=== PATIENT | male | born 1950 | race Caucasian/White ===

== ENCOUNTER 2018-09-19 14:39 | Emergency (ER) | payer MEDICARE ==
[~2018-09-19] VITALS: Ht 172.7 cm; Wt 72.6 kg
[2018-09-19 16:58] LABS: BASOPHILS ABSOLUTE AUTO 0.05 K/mm3 (0.00-0.23); BASOPHILS PERCENT AUTO 1 % (0-2); EOSINOPHILS ABSOLUTE AUTO 0.06 K/mm3 (0.00-0.68); EOSINOPHILS PERCENT AUTO 1 % (0-6); Hematocrit 42.2 % (37.0-53.0); Hemoglobin 13.8 g/dL (13.5-17.5); IMMATURE GRAN ABSOLUTE AUTO 0.03 K/mm3 (0.00-0.10); IMMATURE GRAN PERCENT AUTO 0 % (0-1); LYMPHOCYTES ABSOLUTE AUTO 1.34 K/mm3 (0.84-5.20); LYMPHOCYTES PERCENT AUTO 16 % (21-46); MONOCYTES ABSOLUTE AUTO 0.68 K/mm3 (0.16-1.47); MONOCYTES PERCENT AUTO 8 % (4-13); Mean Corpuscular HGB 28.3 pg (26.0-34.0); Mean Corpuscular HGB Conc 32.7 g/dL (31.5-36.5); Mean Corpuscular Volume 87 fL (80-100); Mean Platelet Volume 10.8 fL (9.1-12.4); NEUTROPHILS ABSOLUTE AUTO 6.36 K/mm3 (1.96-9.15); NEUTROPHILS PERCENT AUTO 75 % (41-73); Platelet Count 190 K/mm3 (150-400); RDW Coefficient Variation 13.1 % (11.7-14.2); RDW Standard Deviation 41.1 fL (35.1-46.3); Red Blood Cell Count 4.87 M/mm3 (4.30-5.90); White Blood Cell Count 8.52 K/mm3 (4.00-11.30)
[2018-09-19 17:13] LABS: Prothrombin Time Results 10.6 Sec (9.7-11.5)
[2018-09-19 17:18] LABS: Albumin, Blood 3.6 g/dL (3.4-5.0); Albumin/Globulin Ratio 0.8 (0.8-1.8); Bilirubin, Total 0.7 mg/dL (0.1-1.0); Globulin, Blood 4.3 g/dL (2.2-4.0); Potassium, Blood 3.8 mmol/L (3.5-5.5); Total Protein, Blood 7.9 g/dL (6.4-8.2)
== END 2018-09-19 17:16 | disposition home or self-care (01) ==
LOC: ER 14:39
PROVIDERS: Physician Assistant
DX: R27.0 Ataxia, unspecified (principal); Z86.73 Personal history of transient ischemic attack (TIA), and cerebral infarction without residual deficits
CPT/HCPCS: 36415; 70450; 71046; 80053; 85025; 85610; 93005; 93010; 99284-25

== ENCOUNTER 2019-09-10 11:06 | Inpatient (IN) | payer MEDICARE ==
[~2019-09-10] VITALS: Ht 172.7 cm; Wt 89.0 kg
[2019-09-10 12:40] LABS: BASOPHILS ABSOLUTE AUTO 0.06 K/mm3 (0.00-0.23); BASOPHILS PERCENT AUTO 1 % (0-2); EOSINOPHILS ABSOLUTE AUTO 0.24 K/mm3 (0.00-0.68); EOSINOPHILS PERCENT AUTO 3 % (0-6); Hematocrit 41.6 % (37.0-53.0); Hemoglobin 13.6 g/dL (13.5-17.5); IMMATURE GRAN ABSOLUTE AUTO 0.02 K/mm3 (0.00-0.10); IMMATURE GRAN PERCENT AUTO 0 % (0-1); LYMPHOCYTES ABSOLUTE AUTO 1.29 K/mm3 (0.84-5.20); LYMPHOCYTES PERCENT AUTO 18 % (21-46); MONOCYTES ABSOLUTE AUTO 0.71 K/mm3 (0.16-1.47); MONOCYTES PERCENT AUTO 10 % (4-13); Mean Corpuscular HGB 29.2 pg (26.0-34.0); Mean Corpuscular HGB Conc 32.7 g/dL (31.5-36.5); Mean Corpuscular Volume 89 fL (80-100); Mean Platelet Volume 11.5 fL (9.1-12.4); NEUTROPHILS PERCENT AUTO 67 % (41-73); Platelet Count 169 K/mm3 (150-400); RDW Coefficient Variation 13.5 % (11.7-14.2); RDW Standard Deviation 44.5 fL (35.1-46.3); Red Blood Cell Count 4.66 M/mm3 (4.30-5.90); White Blood Cell Count 7.02 K/mm3 (4.00-11.30)
[2019-09-10 12:54] LABS: International Normalized Ratio 0.96; Prothrombin Time Results 10.3 Sec (9.7-11.5)
[2019-09-10 12:58] LABS: Albumin, Blood 3.5 g/dL (3.4-5.0); Albumin/Globulin Ratio 0.9 (0.8-1.8); Bilirubin, Total 0.3 mg/dL (0.1-1.0); Bun/Creatinine Ratio 22.5 (12.0-20.0); Calcium, Blood 8.2 mg/dL (8.5-10.1); Creatinine, Blood 1.73 mg/dL (0.60-1.20); Globulin, Blood 3.9 g/dL (2.2-4.0); Potassium, Blood 4.1 mmol/L (3.5-5.5); Total Protein, Blood 7.4 g/dL (6.4-8.2)
[2019-09-10] MEDS ORDERED: ATOR40TA PO (13:07)
[2019-09-10] MEDS ORDERED: METF500 PO (13:07)
--- NOTE | 2019-09-10 18:10 | NUR ---
SHIFT SUMMARY PT ADMITTED TO MEDICAL FLOOR THIS EVENING. HTN NOTED, PT HAS BEEN MEDICATED PER EMAR. RIGHT SIDED DEFICITS NOTED, WORKING WITH PT AND OT THIS EVENING. WILL CONTINUE TO MONITOR FOR ANY ACUTE CHANGES.
--- NOTE | 2019-09-11 04:21 | NUR ---
SHIFT SUMMARY PT HAD AN UNEVENTUFL EVENING. SLEPT OFF AND ON THROUGHOUT THE NIGHT. CORN BREEDER STRONG. MOSTLY EQUAL. MAY BE SLIGHTLY WEAKER ON R SIDE. SOME MINIMAL SLURRED SPEECH. PUPILS EQUAL AND REACTIVE TO LIGHT. PT STEADY ON HIS FEET. AMBULATES WELL WITH JUST A SBA TO RESTROOM. PT CONTINUES TO BE HYPERTENSIVE BUT HAS BEEN TRENDING DOWN THROUGHOUT THE NIGHT. NO COMPLAINTS OF PAIN THIS EVENING. PT RESTING AT THIS TIME. WILL CONTINUE TO MONITOR AND REPORT TO DAY RN.
[2019-09-11 05:53] LABS: CHOL/HDL RATIO 5.6; Cholesterol 223 mg/dL (50-200); HDL Cholesterol 40 mg/dL (>39); LDL/HDL RATIO 3.6; Low Density Lipoprotein Chol 144 mg/dL (0-110); Triglycerides 194 mg/dL (30-160); Very Low Density Lipoprot Chol 38 mg/dL (6-32)
[2019-09-11 12:52] LABS: Source, Urine Clean Catch
[2019-09-11 12:58] LABS: Bilirubin, Urine Neg (Neg); Blood, Urine Neg (Neg); Glucose Qualitative, Urine Neg (Neg); Ketones, Urine Neg (Neg); Leukocyte Esterase, Urine Neg (Neg); Nitrite, Urine Neg (Neg); Protein, Urine 1+ (Neg); Urobilinogen, Urine NORM (Normal)
[2019-09-11 13:21] LABS: Appearance, Urine Clear (Clear); Color, Urine Yellow (P-Yellow)
--- NOTE | 2019-09-11 15:13 | NUR ---
SHIFT SUMMARY PT AXO PLEASANT AND COOPERATIVE WITH CARE. PT AMBULATING WITH STEADY GAIT, NO DEFICITS NOTED. PT STATES THAT HE "FEELS GOOD." PT REFUSED INSULIN STATING THAT HE DID NOT WANT BLOOD SUGAR TO GO "TOO LOW." UA SENT TO LAB, SEE RESULTS. PT ALSO HAD CT, MRI THIS SHIFT, SEE IMAGING. PT'S FRIEND SARAH CALLED AND UPDATE GIVEN WITH PT PERMISSION. VSS, HTN NOTED. BED IN LOW POSITION, CALL LIGHT WITHIN REACH.
--- NOTE | 2019-09-11 15:52 | NUR ---
REPORT GIVEN TO KATERIN GLEZ RN WHO WILL ASSUME CARE AT THIS TIME
--- NOTE | 2019-09-11 16:04 | NUR ---
Echocardiogram completed.
--- NOTE | 2019-09-11 16:49 | NUR ---
ASSUMED CARE FOR THIS PT, REPORT RECIEVED FROM ANDREA NANCE. PT IS CURRENTLY RECIEVING ECHOCARDIOGRAM. PT IS RESTING COMFORTABLY IN BED AND REPORTS NO NEEDS AT THIS TIME
--- NOTE | 2019-09-12 05:28 | NUR ---
SHIFT SUMMARY PT HAD UNEVENTFUL NIGHT. FELL ASLEEP LATE IN THE NIGHT BUT SLEPT WELL FOLLOWING. NO COMPLAINTS OF PAIN OR DISCOMFORT. SLURRED SPEECH RESOLVED. NO DEFICITS NOTED. STRENGTH EQUAL. PT'T GAIT STEADY. PT INDEPENDENT TO THE RESTROOM THIS EVENING. TELEMETRY READING SR 72. BLOOD PRESSURE REMAINED SOMEWHAT ELEVATED WITH SYSTOLIC IN THE 160'S. NEW ORDER FOR ZESTRIL TO START THIS EVENING. ZESTRIL GIVEN. BP DOWN TO 144/78 THIS AM. OTHERWISE NO ACUTE CHANGES. VITAL SIGNS STABLE. WILL CONTINUE TO MONITOR AND REPORT TO DAY RN.
[2019-09-12 05:53] LABS: Bun/Creatinine Ratio 18.8 (12.0-20.0); Calcium, Blood 8.5 mg/dL (8.5-10.1); Creatinine, Blood 2.02 mg/dL (0.60-1.20); Potassium, Blood 4.1 mmol/L (3.5-5.5)
--- NOTE | 2019-09-12 17:36 | NUR ---
SHIFT SUMMARY- PT IS A/O, PLESANT AND COOPERATIVE. HE HAS A GOOD APPETITE. HE WORKED WITH PHYSICAL THERAPY AND OCCUPATIONAL THERAPY. HE IS PENDING DISCHARGE TOMORROW WITH HOME HEALTH. HE WILL NEED A PRIMARY CARE PROVIDER AND FOLLOW UP LABS ON SUNDAY. SPOKE WITH HIS FRIEND AND HIS SISTER AND PORVIDED UPDATES.
[2019-09-13 05:18] LABS: Bun/Creatinine Ratio 22.9 (12.0-20.0); Calcium, Blood 8.4 mg/dL (8.5-10.1); Creatinine, Blood 1.92 mg/dL (0.60-1.20); Potassium, Blood 4.1 mmol/L (3.5-5.5)
--- NOTE | 2019-09-13 06:11 | NUR ---
pt pleasant and cooperative during care. Pt slept peacefully through the night only getting up to use the restroom. Pt's speech appears to be clear and does not have sluurred speech at this time. pt reported no pain or any new complaints through the night. pt reports desire to go home.
--- NOTE | 2019-09-13 06:40 | NUR ---
SUMMARY NO ISSUES NOTED. PT HAS SLEPT T/O SHIFT. PT IS AMBULATING WELL AND NO NOTED DEFICITS. PT CURRENTLY SLEEPING AND IN NO DISTRESS. CALL LIGHT IN REACH.
--- NOTE | 2019-09-13 13:55 | NUR ---
PATIENT HAS SARAH JASON AT [phone]. SHE STS HE HAS F/U APPOINTMENT ON FRIDAY 09/[address]KODY GRACE IN [place]. WILL CALL HER IF PATIENT IS TO BE D'C TODAY OR NOT TO KEEP HER UPDATED.
[2019-09-13] MEDS ORDERED: AMLO10 PO (16:54)
[2019-09-13] MEDS ORDERED: ASPI81CH PO (16:55)
[2019-09-13] MEDS ORDERED: CLOP75 PO (16:55)
[2019-09-13] MEDS ORDERED: LISI20 PO (16:55)
--- NOTE | 2019-09-13 17:31 | NUR ---
REVIEW D'C. 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 AWARE HAS F/U APPT W/PCP ON SUNDAY. AWARE WILL GET HH AND STS WANTS WHICHEVER ONE CAN GET IN FIRST. ANSWER ALL QUESTIONS. AWAITING RIDE.AWARE CAN RETURN TO E.R IF ANY PROBLEMS. AWARE SHOULD GET BLD PRESSURE MACHINE AND KEEP TRACK OF BLD PRESSURES.
== END 2019-09-13 17:50 | disposition home or self-care (01) | DRG 66 ==
LOC: ER 11:06 → MEDS 12:51
PROVIDERS: Emergency Medicine; Hospitalist; ADMIT Internal Medicine
DX: I63.9 Cerebral infarction, unspecified (principal); N18.3 Chronic kidney disease, stage 3 (moderate); E11.22 Type 2 diabetes mellitus with diabetic chronic kidney disease; E11.65 Type 2 diabetes mellitus with hyperglycemia; I12.9 Hypertensive chronic kidney disease with stage 1 through stage 4 chronic kidney disease, or unspecified chronic kidney disease; E78.5 Hyperlipidemia, unspecified; I27.20 Pulmonary hypertension, unspecified; I08.1 Rheumatic disorders of both mitral and tricuspid valves; Z86.73 Personal history of transient ischemic attack (TIA), and cerebral infarction without residual deficits
CPT/HCPCS: 36415; 70450; 70496; 70551; 71046; 76770; 80048; 80053; 80061; 82947; 83036; 85025; 85610; 92610; 93005; 93010; 93306; 97110; 97112; 97116; 97162; 97165; 97530; 97535; 99285-25; A9270-GY; J1650; Q9967

== ENCOUNTER → 2021-11-30 | Outpatient (CLI) | payer MEDICARE ==
[~2021-11-30] MED LIST: AMLO10 PO; ASPI81CH PO; ATOR40TA PO; CLOP75 PO; LISI20 PO; METF500 PO
[2021-11-30 19:48] LABS: Microalb/Creat Ratio UR, Rand 16.238 mg/g (0.000-30.000); Microalbumin, Random Urine 16.4 mg/L (0.000-20.000)
== END | disposition home or self-care (01) ==
LOC: LAB SHORT 12:00
PROVIDERS: Family Medicine
DX: E11.9 Type 2 diabetes mellitus without complications (principal)
CPT/HCPCS: 82043; 82570

== ENCOUNTER 2022-07-24 10:26 | Day surgery (SDC) | payer MEDICARE ==
[~2022-07-24] VITALS: Ht 172.7 cm; Wt 98.4 kg
[2022-07-24 11:26] VITALS: BP 167/78
--- NOTE | 2022-07-24 13:49 | NUR ---
07/24/22 8770 Hemalatha Mcgovern PT COULD NOT SAY FOR SURE WHETHER OR NOT HE TOOK HIS PLAVIX SO CASE WAS CANCELLED.
== END 2022-07-24 12:55 | disposition home or self-care (01) ==
LOC: ORSCSDS 10:26
DX: D64.9 Anemia, unspecified (principal); Z53.9 Procedure and treatment not carried out, unspecified reason
CPT/HCPCS: 82947; J2704; J7120

== ENCOUNTER 2022-12-03 20:05 | Inpatient (IN) | payer MEDICARE ==
[2022-12-03 23:24] LABS: BASOPHILS ABSOLUTE AUTO 0.04 K/mm3 (0.00-0.23); BASOPHILS PERCENT AUTO 0 % (0-2); EOSINOPHILS PERCENT AUTO 0 % (0-6); Hematocrit 40.5 % (37.0-53.0); Hemoglobin 13.7 g/dL (13.5-17.5); IMMATURE GRAN ABSOLUTE AUTO 0.08 K/mm3 (0.00-0.10); IMMATURE GRAN PERCENT AUTO 1 % (0-1); LYMPHOCYTES ABSOLUTE AUTO 1.05 K/mm3 (0.84-5.20); LYMPHOCYTES PERCENT AUTO 7 % (21-46); MONOCYTES ABSOLUTE AUTO 1.39 K/mm3 (0.16-1.47); MONOCYTES PERCENT AUTO 9 % (4-13); Mean Corpuscular HGB 29.2 pg (26.0-34.0); Mean Corpuscular HGB Conc 33.8 g/dL (31.5-36.5); Mean Corpuscular Volume 86 fL (80-100); Mean Platelet Volume 10.5 fL (9.1-12.4); NEUTROPHILS ABSOLUTE AUTO 12.21 K/mm3 (1.96-9.15); NEUTROPHILS PERCENT AUTO 83 % (41-73); Platelet Count 299 K/mm3 (150-400); RDW Coefficient Variation 13.3 % (11.7-14.2); RDW Standard Deviation 41.4 fL (35.1-46.3); Red Blood Cell Count 4.69 M/mm3 (4.30-5.90); White Blood Cell Count 14.77 K/mm3 (4.00-11.30)
[2022-12-03 23:42] LABS: Albumin, Blood 3.9 g/dL (3.4-5.0); Albumin/Globulin Ratio 0.9 (0.8-1.8); Bilirubin, Total 0.5 mg/dL (0.1-1.0); Bun/Creatinine Ratio 20.7 (12.0-20.0); Calcium, Blood 8.9 mg/dL (8.5-10.1); Creatinine, Blood 2.94 mg/dL (0.60-1.20); Globulin, Blood 4.5 g/dL (2.2-4.0); Potassium, Blood 3.8 mmol/L (3.5-5.5); Total Protein, Blood 8.4 g/dL (6.4-8.2)
[2022-12-04 02:58] VITALS: BP 162/90
--- NOTE | 2022-12-04 04:56 | NUR ---
CALLED DR BAL- PT BG 375 IN ED 10 UNITS LANTUS ORDERED AND NOT GIVEN. PT ARRIVED ON MED FLOOR BG RECHECKED FOR LANTUS ADMINISTRATION, BG 277. PT HAS NEVER USED INSULIN HE USES METFORMIN AT HOME. IVF STARTED AT 75ML/HR. PT IS NPO. ORDER RECIEVED TO GIVE 5UNITS OF LANTUS NOW INSTEAD OF 10. ORDER PLACED IN ORDER MANAGEMENT.
--- NOTE | 2022-12-04 07:50 | NUR ---
SSHIFT SUMMARY- PT ALERT AND ORIENTED INDEPENDENT TO THE BATHROOM. SPOKE TO AM DOCTORS AT THE END OF THE SHIFT ABOUT THE NEED FOR PODIATRY FOR THIS PT. BEDSIDE REPORT COMPLETED WITH DAY RN. PT IN BED GETTING RENAL US NO S&S OF DISTRESS NOTED.
[2022-12-04 08:03] VITALS: BP 172/82
[2022-12-04 09:06] LABS: BASOPHILS ABSOLUTE AUTO 0.03 K/mm3 (0.00-0.23); BASOPHILS PERCENT AUTO 0 % (0-2); EOSINOPHILS ABSOLUTE AUTO 0.04 K/mm3 (0.00-0.68); EOSINOPHILS PERCENT AUTO 0 % (0-6); Hematocrit 34.1 % (37.0-53.0); Hemoglobin 11.7 g/dL (13.5-17.5); IMMATURE GRAN ABSOLUTE AUTO 0.04 K/mm3 (0.00-0.10); IMMATURE GRAN PERCENT AUTO 0 % (0-1); LYMPHOCYTES ABSOLUTE AUTO 1.27 K/mm3 (0.84-5.20); LYMPHOCYTES PERCENT AUTO 12 % (21-46); MONOCYTES ABSOLUTE AUTO 1.28 K/mm3 (0.16-1.47); MONOCYTES PERCENT AUTO 12 % (4-13); Mean Corpuscular HGB Conc 34.3 g/dL (31.5-36.5); Mean Corpuscular Volume 85 fL (80-100); Mean Platelet Volume 10.2 fL (9.1-12.4); NEUTROPHILS ABSOLUTE AUTO 7.82 K/mm3 (1.96-9.15); NEUTROPHILS PERCENT AUTO 75 % (41-73); Platelet Count 235 K/mm3 (150-400); RDW Coefficient Variation 13.2 % (11.7-14.2); RDW Standard Deviation 41.4 fL (35.1-46.3); Red Blood Cell Count 4.03 M/mm3 (4.30-5.90); White Blood Cell Count 10.48 K/mm3 (4.00-11.30)
[2022-12-04 09:28] LABS: Albumin/Globulin Ratio 0.8 (0.8-1.8); Bilirubin, Total 0.5 mg/dL (0.1-1.0); Bun/Creatinine Ratio 22.9 (12.0-20.0); Calcium, Blood 7.8 mg/dL (8.5-10.1); Creatinine, Blood 2.53 mg/dL (0.60-1.20); Globulin, Blood 3.8 g/dL (2.2-4.0); Potassium, Blood 3.8 mmol/L (3.5-5.5); Total Protein, Blood 6.8 g/dL (6.4-8.2)
[2022-12-04 14:51] VITALS: BP 153/82
[2022-12-04 18:19] LABS: Bun/Creatinine Ratio 20.1 (12.0-20.0); Calcium, Blood 8.3 mg/dL (8.5-10.1); Creatinine, Blood 2.69 mg/dL (0.60-1.20); Potassium, Blood 3.6 mmol/L (3.5-5.5)
--- NOTE | 2022-12-04 18:51 | NUR ---
SHIFT SUMMARY- PT IS A/O, PLESANT AND COOPERATIVE. HE C/O SORE THROAT WHEN EATING ST ORDERED. PT SLEPT FOR MUCH OF THIS SHIFT. BLOOD GLUCOSE HAS BEEN ELEVATED AND COVERED WITH INSULIN. RENAL ULTRASOUND THIS SHIFT. NOTIFIED PT THAT WE NEEDED TO COLLECT URINE AND STOOL SAMPLE. PT IS AMBULATING TO RESTROOM. HIS BED IS IN THE LOW POSIOTN AND CALL LIGHT IS WITIN REACH.
[2022-12-04 19:38] VITALS: BP 153/80
[2022-12-04 19:57] LABS: Source, Urine Clean Catch
[2022-12-04 20:11] LABS: Appearance, Urine Clear (Clear); Bilirubin, Urine Neg (Neg); Blood, Urine 1+ (Neg); Color, Urine Yellow (P-Yellow); Glucose Qualitative, Urine 2+ (Neg); Ketones, Urine Neg (Neg); Leukocyte Esterase, Urine Neg (Neg); Nitrite, Urine Neg (Neg); Protein, Urine 1+ (Neg); Urobilinogen, Urine NORM (Normal)
[2022-12-04 20:40] LABS: Bacteria Rare /hpf; Red Blood Cells, Urine 0-2 /hpf (0-2); Squamous Epithelial Cells Rare /hpf (Few); White Blood Cells, Urine 0-2 /hpf (0-5)
[2022-12-04 20:41] LABS: Uric Acid Crystals Few /hpf
[2022-12-05 04:22] VITALS: BP 139/74
--- NOTE | 2022-12-05 05:44 | NUR ---
SHIFT SUMMARY A/OX4, IND TO BATHROOM. SLEPT T/O THE NIGHT. TELE SR 60-70S, DENIES CHEST PAIN/PRESSURE. VSS, NO ACUTE CHANGES AT THIS TIME. BED IN LOWEST POSTIION WITH CALL LIGHT IN REACH. WILL CONTINUE TO MONITOR AND REPORT TO ONCOMING RN.
[2022-12-05 07:35] VITALS: BP 150/75
[2022-12-05 07:46] LABS: BASOPHILS ABSOLUTE AUTO 0.07 K/mm3 (0.00-0.23); BASOPHILS PERCENT AUTO 1 % (0-2); EOSINOPHILS PERCENT AUTO 3 % (0-6); Hematocrit 33.5 % (37.0-53.0); Hemoglobin 11.5 g/dL (13.5-17.5); IMMATURE GRAN ABSOLUTE AUTO 0.04 K/mm3 (0.00-0.10); IMMATURE GRAN PERCENT AUTO 0 % (0-1); LYMPHOCYTES ABSOLUTE AUTO 1.75 K/mm3 (0.84-5.20); LYMPHOCYTES PERCENT AUTO 17 % (21-46); MONOCYTES ABSOLUTE AUTO 1.26 K/mm3 (0.16-1.47); MONOCYTES PERCENT AUTO 12 % (4-13); Mean Corpuscular HGB 29.3 pg (26.0-34.0); Mean Corpuscular HGB Conc 34.3 g/dL (31.5-36.5); Mean Corpuscular Volume 86 fL (80-100); Mean Platelet Volume 10.3 fL (9.1-12.4); NEUTROPHILS PERCENT AUTO 67 % (41-73); Platelet Count 225 K/mm3 (150-400); RDW Coefficient Variation 13.2 % (11.7-14.2); RDW Standard Deviation 40.9 fL (35.1-46.3); Red Blood Cell Count 3.92 M/mm3 (4.30-5.90); White Blood Cell Count 10.42 K/mm3 (4.00-11.30)
[2022-12-05 07:57] LABS: Bun/Creatinine Ratio 20.3 (12.0-20.0); Calcium, Blood 8.2 mg/dL (8.5-10.1); Creatinine, Blood 2.36 mg/dL (0.60-1.20); Potassium, Blood 3.6 mmol/L (3.5-5.5)
[2022-12-05] MEDS ORDERED: TAMSULOSIN HCL0.4 M1 PO (12:38)
[2022-12-05] MEDS ORDERED: FUROSEMIDE20 MG PO (12:39)
[2022-12-05] MEDS ORDERED: TERB250 PO (14:58)
[2022-12-05] MEDS ORDERED: OMEP20ER PO (14:58)
[2022-12-05 14:59] VITALS: BP 150/72
--- NOTE | 2022-12-05 16:33 | NUR ---
DISCHARGE PT A&OX4, COOPERATIVE WITH CARE AND PLEASANT. INDEPENDEN T/O SHIFT. DENIED ANY CHEST PAIN, SOB, DIZZINESS, OR HEADACHE. IV REMOVED. SKIN TEAR COVERED WITH BANDAGE. DISCHARGE PACKET REVIEWED AND EDUCATION PROVIDED. PATIENT DENIED ANY QUESTIONS OR CONCERNS. PATIENT LEFT AT 1625 VIA WHEELCHAIR ESCORT NOTING THAT HIS RIDE IS ON THE WAY AND HE WOULD WAIT DOWNSTAIRS.
== END 2022-12-05 16:30 | disposition home or self-care (01) | DRG 682 ==
LOC: ER 20:05 → MEDS 20:06 → ENPENDDIS 12-05 15:45 → MEDS 12-05 16:30
PROVIDERS: Family Medicine; Student in an Organized Health Care Education/Training Program; ADMIT Internal Medicine
DX: N17.9 Acute kidney failure, unspecified (principal); I21.A1 Myocardial infarction type 2; E87.1 Hypo-osmolality and hyponatremia; I12.9 Hypertensive chronic kidney disease with stage 1 through stage 4 chronic kidney disease, or unspecified chronic kidney disease; E11.22 Type 2 diabetes mellitus with diabetic chronic kidney disease; D63.1 Anemia in chronic kidney disease; E86.0 Dehydration; E11.65 Type 2 diabetes mellitus with hyperglycemia; N18.32 Chronic kidney disease, stage 3b; M48.00 Spinal stenosis, site unspecified; E78.5 Hyperlipidemia, unspecified; B35.1 Tinea unguium; Z79.84 Long term (current) use of oral hypoglycemic drugs; Z79.82 Long term (current) use of aspirin; Z79.899 Other long term (current) drug therapy; Z86.73 Personal history of transient ischemic attack (TIA), and cerebral infarction without residual deficits; Z98.890 Other specified postprocedural states
CPT/HCPCS: 36415; 71046; 76770; 80048; 80053; 81001; 82728; 82947; 83036; 83540; 83550; 83690; 83880; 84484; 85025; 92610; 93005; 93010; 93306; 96360; 96361; 96372; 96374; 97162; 97165; 97530; 99285-25; A9270; C9113; G0378; J1644; J1815; J7030

== ENCOUNTER → 2022-12-22 | Outpatient (CLI) | payer MEDICARE ==
[~2022-12-22] MED LIST changes: +FUROSEMIDE20 MG PO; +OMEP20ER PO; +TAMSULOSIN HCL0.4 M1 PO; +TERB250 PO
[2022-12-22 20:38] LABS: Albumin, Blood 3.4 g/dL (3.4-5.0); Albumin/Globulin Ratio 0.8 (0.8-1.8); Bilirubin, Total 0.3 mg/dL (0.1-1.0); Calcium, Blood 9.1 mg/dL (8.5-10.1); Creatinine, Blood 2.13 mg/dL (0.60-1.20); Total Protein, Blood 7.4 g/dL (6.4-8.2)
== END | disposition home or self-care (01) ==
LOC: LAB 18:46 → LAB SHORT 18:46
PROVIDERS: Family Medicine
DX: N17.9 Acute kidney failure, unspecified (principal)
CPT/HCPCS: 80053

== ENCOUNTER → 2024-05-21 | Outpatient (CLI) | payer MEDICARE ==
[2024-05-21 18:42] LABS: BASOPHILS ABSOLUTE AUTO 0.06 K/mm3 (0.00-0.23); BASOPHILS PERCENT AUTO 1 % (0-2); EOSINOPHILS PERCENT AUTO 3 % (0-6); Hematocrit 32.5 % (37.0-53.0); Hemoglobin 10.7 g/dL (13.5-17.5); IMMATURE GRAN ABSOLUTE AUTO 0.01 K/mm3 (0.00-0.10); IMMATURE GRAN PERCENT AUTO 0 % (0-1); LYMPHOCYTES ABSOLUTE AUTO 1.15 K/mm3 (0.84-5.20); LYMPHOCYTES PERCENT AUTO 14 % (21-46); MONOCYTES ABSOLUTE AUTO 0.51 K/mm3 (0.16-1.47); MONOCYTES PERCENT AUTO 6 % (4-13); Mean Corpuscular HGB 28.9 pg (26.0-34.0); Mean Corpuscular HGB Conc 32.9 g/dL (31.5-36.5); Mean Corpuscular Volume 88 fL (80-100); Mean Platelet Volume 10.9 fL (9.1-12.4); NEUTROPHILS ABSOLUTE AUTO 6.21 K/mm3 (1.96-9.15); NEUTROPHILS PERCENT AUTO 76 % (41-73); Platelet Count 223 K/mm3 (150-400); RDW Coefficient Variation 13.9 % (11.7-14.2); RDW Standard Deviation 44.6 fL (35.1-46.3); White Blood Cell Count 8.14 K/mm3 (4.00-11.30)
[2024-05-21 19:07] LABS: Alanine Aminotransfer (ALT/SGP 20 U/L (12-78); Albumin, Blood 3.9 g/dL (3.4-5.0); Alk Phos 117 U/L (50-136); Anion Gap 8 mmol/L (3-11); Aspartate Aminotrans (AST/SGOT 8 U/L (12-37); Bilirubin, Total 0.3 mg/dL (0.1-1.0); Blood Urea Nitrogen 49 mg/dL (8-24); Bun/Creatinine Ratio 16.4 (12.0-20.0); CHOL/HDL RATIO 2.8; CO2, Blood 23 mmol/L (21-32); Chloride, Blood 114 mmol/L (98-108); Cholesterol 127 mg/dL (50-200); Creatinine, Blood 2.99 mg/dL (0.60-1.20); Glomerular Filtration Rate 22 (60-); Glucose, Blood 136 mg/dL (70-99); HDL Cholesterol 46 mg/dL (>39); LDL/HDL RATIO 1.2; Low Density Lipoprotein Chol 54 mg/dL (0-110); Potassium, Blood 4.2 mmol/L (3.5-5.5); Sodium, Blood 141 mmol/L (136-145); Total Protein, Blood 7.9 g/dL (6.4-8.2); Triglycerides 133 mg/dL (30-160); Very Low Density Lipoprot Chol 26 mg/dL (6-32)
== END ==
LOC: LAB SHORT 17:32 → LAB 17:32
PROVIDERS: Family Medicine
DX: E11.65 Type 2 diabetes mellitus with hyperglycemia (principal); E78.2 Mixed hyperlipidemia
CPT/HCPCS: 80053; 80061; 85025

== ENCOUNTER → 2024-08-20 | Outpatient (CLI) | payer MEDICARE ==
[2024-08-20 19:34] LABS: BASOPHILS ABSOLUTE AUTO 0.09 K/mm3 (0.00-0.23); BASOPHILS PERCENT AUTO 1 % (0-2); EOSINOPHILS ABSOLUTE AUTO 0.28 K/mm3 (0.00-0.68); EOSINOPHILS PERCENT AUTO 2 % (0-6); Hematocrit 32.2 % (37.0-53.0); Hemoglobin 10.5 g/dL (13.5-17.5); IMMATURE GRAN ABSOLUTE AUTO 0.04 K/mm3 (0.00-0.10); IMMATURE GRAN PERCENT AUTO 0 % (0-1); LYMPHOCYTES ABSOLUTE AUTO 1.47 K/mm3 (0.84-5.20); LYMPHOCYTES PERCENT AUTO 11 % (21-46); MONOCYTES ABSOLUTE AUTO 0.82 K/mm3 (0.16-1.47); MONOCYTES PERCENT AUTO 6 % (4-13); Mean Corpuscular HGB Conc 32.6 g/dL (31.5-36.5); Mean Corpuscular Volume 89 fL (80-100); NEUTROPHILS PERCENT AUTO 80 % (41-73); Platelet Count 288 K/mm3 (150-400); RDW Coefficient Variation 14.8 % (11.7-14.2); RDW Standard Deviation 48.1 fL (35.1-46.3); Red Blood Cell Count 3.62 M/mm3 (4.30-5.90)
[2024-08-20 20:23] LABS: Albumin, Blood 3.8 g/dL (3.4-5.0); Albumin/Globulin Ratio 0.9 (0.8-1.8); Bilirubin, Total 0.3 mg/dL (0.1-1.0); Bun/Creatinine Ratio 18.6 (12.0-20.0); Calcium, Blood 8.9 mg/dL (8.5-10.1); Creatinine, Blood 4.08 mg/dL (0.60-1.20); Globulin, Blood 4.1 g/dL (2.2-4.0); Percent Saturation 21.9 % (20.0-50.0); Potassium, Blood 4.8 mmol/L (3.5-5.5); Total Protein, Blood 7.9 g/dL (6.4-8.2)
== END ==
LOC: LAB 14:42 → LAB SHORT 14:42
PROVIDERS: Family Medicine
DX: I12.9 Hypertensive chronic kidney disease with stage 1 through stage 4 chronic kidney disease, or unspecified chronic kidney disease (principal); D63.1 Anemia in chronic kidney disease; R06.00 Dyspnea, unspecified
CPT/HCPCS: 80053; 82728; 83540; 83550; 83880; 85025

== ENCOUNTER 2024-10-15 13:29 | Inpatient (IN) | payer MEDICARE ==
[~2024-10-15] VITALS: Ht 170.2 cm; Wt 83.0 kg
[2024-10-15 14:46] LABS: BASOPHILS ABSOLUTE AUTO 0.01 K/mm3 (0.00-0.23); BASOPHILS PERCENT AUTO 0 % (0-2); EOSINOPHILS ABSOLUTE AUTO 0.00 K/mm3 (0.00-0.68); EOSINOPHILS PERCENT AUTO 0 % (0-6); Hematocrit 29.5 % (37.0-53.0); Hemoglobin 9.1 g/dL (13.5-17.5); IMMATURE GRAN ABSOLUTE AUTO 0.05 K/mm3 (0.00-0.10); IMMATURE GRAN PERCENT AUTO 0 % (0-1); LYMPHOCYTES ABSOLUTE AUTO 0.45 K/mm3 (0.84-5.20); LYMPHOCYTES PERCENT AUTO 3 % (21-46); MONOCYTES ABSOLUTE AUTO 0.37 K/mm3 (0.16-1.47); MONOCYTES PERCENT AUTO 3 % (4-13); Mean Corpuscular HGB Conc 30.8 g/dL (31.5-36.5); Mean Corpuscular Volume 95 fL (80-100); NEUTROPHILS ABSOLUTE AUTO 13.67 K/mm3 (1.96-9.15); NEUTROPHILS PERCENT AUTO 94 % (41-73); NRBC ABSOLUTE 0.00 K/mm3 (0.00-0.02); NRBC Auto 0.0 /100 WBC (0.0-0.2); Platelet Count 169 K/mm3 (150-400); RDW Coefficient Variation 14.6 % (11.7-14.2); RDW Standard Deviation 50.4 fL (35.1-46.3)
[2024-10-15 14:47] LABS: Source, Urine Clean Catch
[2024-10-15 15:07] LABS: Magnesium, Blood 1.8 mg/dL (1.6-2.4)
[2024-10-15 15:09] LABS: Alanine Aminotransfer (ALT/SGP 12.0 U/L (12-78); Albumin, Blood 2.8 g/dL (3.4-5.0); Albumin/Globulin Ratio 0.8 (0.8-1.8); Anion Gap 17.0 mmol/L (3-11); Aspartate Aminotrans (AST/SGOT 5.0 U/L (12-37); Bilirubin, Total 0.2 mg/dL (0.1-1.0); Blood Urea Nitrogen 87.0 mg/dL (8-24); CO2, Blood 7.0 mmol/L (21-32); Calcium, Blood 6.3 mg/dL (8.5-10.1); Chloride, Blood 124.0 mmol/L (98-108); Creatinine, Blood 6.42 mg/dL (0.60-1.20); Globulin, Blood 3.4 g/dL (2.2-4.0); Glucose, Blood 145.0 mg/dL (70-99); Potassium, Blood 3.3 mmol/L (3.5-5.5); Sodium, Blood 145.0 mmol/L (136-145); Total Protein, Blood 6.2 g/dL (6.4-8.2)
[2024-10-15 15:11] LABS: Bilirubin, Urine Neg (Neg); Glucose Qualitative, Urine Neg (Neg); Ketones, Urine Neg (Neg); Leukocyte Esterase, Urine 3+ (Neg); Protein, Urine Neg (Neg); Specific Gravity, Urine 1.010 (1.003-1.022); Urobilinogen, Urine NORM (Normal)
[2024-10-15 15:22] LABS: Color, Urine Yellow (P-Yellow)
[2024-10-15] MEDS ORDERED: NS 1,000 ML IV SCH (15:25)
[2024-10-15 16:25] LABS: pH Blood Venous 7.13 (7.34-7.37)
[2024-10-15] MEDS ORDERED: Ondansetron HCl 2 MG / ML 2ML Vial IV PRN (17:40)
[2024-10-15] MEDS ORDERED: Metoclopramide HCl 5MG / ML 2ML Vial IV PRN (17:50)
[2024-10-15] MEDS ORDERED: Metoclopramide HCl 5MG / ML 2ML Vial IV ONE (18:00)
[2024-10-15 20:23] LABS: pH Blood Venous 7.17 (7.34-7.37)
[2024-10-15 20:39] LABS: Anion Gap 15.0 mmol/L (3-11); Blood Urea Nitrogen 112.0 mg/dL (8-24); CO2, Blood 15.0 mmol/L (21-32); Calcium, Blood 7.7 mg/dL (8.5-10.1); Chloride, Blood 113.0 mmol/L (98-108); Creatinine, Blood 7.95 mg/dL (0.60-1.20); Glucose, Blood 145.0 mg/dL (70-99); Potassium, Blood 4.8 mmol/L (3.5-5.5); Sodium, Blood 138.0 mmol/L (136-145)
[2024-10-15] MEDS ORDERED: Heparin Sodium,Porcine 5,000 UNIT/0.5 ML SDV SC SCH (21:00)
[2024-10-15 21:34] VITALS: BP 176/77
[2024-10-16] VITALS (7 sets, daily range): BP systolic 112–185; BP diastolic 55–87
--- NOTE | 2024-10-16 04:54 | NUR ---
ASSUMPTION OF CARE/SHIFT SUMMARY PATIENT ARRIVED TO THE FLOOR AT APPROX 2130 VIA GURNY. PT ABLE TO STAND AND TRANSFER TO BED WITH MINIMAL ASSISTANCE. CONTACT PRECAUTIONS PLACED DUE TO ER REPORT OF CURRENT BED BUGS. ADMISSION ASSESSMENT COMPLETE WITH SCABBED AREAS TO SYDNEY UPPER EXTREMITIES, AND RED BLANCHABLE SYDNEY HEELS. PATIENT SKIN IS VERY DRY, FLAKY, AND APPEARS DIRTY. VITAL SIGNS OBTAINED. TELE PLACED AND CALLED CONTRACT LOADER. PT NOTED TO HAVE NSR WITH BBB AND QT ELONGATION AT 0.51. PT AYSMPTOMATIC WITH NO REPORT OF SOB OR CHEST PAIN. CHARGE NURSE JENNIFER NOTIFIED AND HE PLACED CALL TO PCP. EKG OBTAINED PER PROVIDER ORDERS, JENNIFER AGAIN CALLED IVORY CARVER PROVIDER, NO NEW ORDERS AT THIS TIME. PT VOIDING WELL AND PASSING FLATULENCE, BOWEL TONES ACTIVE. NO ACUTE CHANGES THROUGHOUT THE SHIFT. PT CALLING APPROPRIATELY. BED IN LOWEST POSITION. SBA TO BATHROOM DUE TO LINES AND WEAKNESS. WILL REPORT TO ONCOMING RN.
[2024-10-16 05:24] LABS: pH Blood Venous 7.31 (7.34-7.37)
[2024-10-16 06:19] LABS: Hematocrit 28.1 % (37.0-53.0); Hemoglobin 9.3 g/dL (13.5-17.5); Mean Corpuscular HGB Conc 33.1 g/dL (31.5-36.5); Mean Corpuscular Volume 89 fL (80-100); NRBC ABSOLUTE 0.00 K/mm3 (0.00-0.02); NRBC Auto 0.0 /100 WBC (0.0-0.2); Platelet Count 173 K/mm3 (150-400); RDW Coefficient Variation 14.5 % (11.7-14.2); RDW Standard Deviation 46.6 fL (35.1-46.3)
[2024-10-16 06:51] LABS: Anion Gap 12.0 mmol/L (3-11); Blood Urea Nitrogen 106.0 mg/dL (8-24); CO2, Blood 16.0 mmol/L (21-32); Calcium, Blood 8.0 mg/dL (8.5-10.1); Chloride, Blood 116.0 mmol/L (98-108); Creatinine, Blood 6.73 mg/dL (0.60-1.20); Glucose, Blood 98.0 mg/dL (70-99); Magnesium, Blood 2.3 mg/dL (1.6-2.4); Potassium, Blood 3.9 mmol/L (3.5-5.5); Sodium, Blood 140.0 mmol/L (136-145)
[2024-10-16] MEDS ORDERED: Insulin Human Lispro 100 Units/ML 3ML Syringe SC SCH (07:30)
[2024-10-16] MEDS ORDERED: Darbepoetin (Pharmacy Consult) SC SCH (12:05)
[2024-10-16] MEDS ORDERED: Sodium Bicarb 8.4% Inj 150 MEQ in Dextrose 5% 1,000 ML IV SCH (12:30)
--- NOTE | 2024-10-16 15:50 | NUR ---
NOTIFIED DR. BALLESTEROS OF PATIENTS ELEVATED B/P SYSTOLICALLY IN THE 180'S. DR. BALLESTEROS STATED HE IS GOING TO INCREASE FREQUNCY OF NORVASC TO BID.
[2024-10-16 17:05] LABS: Anion Gap 10.0 mmol/L (3-11); Blood Urea Nitrogen 85.0 mg/dL (8-24); CO2, Blood 19.0 mmol/L (21-32); Calcium, Blood 8.5 mg/dL (8.5-10.1); Chloride, Blood 113.0 mmol/L (98-108); Creatinine, Blood 5.62 mg/dL (0.60-1.20); Glucose, Blood 194.0 mg/dL (70-99); Potassium, Blood 4.2 mmol/L (3.5-5.5); Sodium, Blood 138.0 mmol/L (136-145)
[2024-10-16] MEDS ORDERED: HydrALAZINE HCl 20 MG / ML 1ML Vial IV PRN (18:35)
--- NOTE | 2024-10-16 19:14 | NUR ---
SUMMARY PT CONTINUING TO HAVE NAUSEA, ONE EPISODE OF VOMITING THIS AM. IV ZOFRAN GIVEN X1 AND IV REGLAN GIVEN X1. PT ALSO CONTINUES TO HAVE HICCUPS WHILE AWAKE. PT ATE SMALL AMOUNT OF BREAKFAST BUT NO LUNCH OR DINNER. DR. ZHENG CONSULTED AND STARTED SODIUM BICARB DRIP. PT SEEN BY PT, DOING WELL UP WITH WALKER. PT DRIBBLING/INCONTINENT OF URINE, WHILE ATTEMPTING TO USE URINAL. BED ALARM ON FOR UMPULSIVITY. BASELINE TREMOR TO BILAT UPPER EXT. DR. BALLESTEROS INCREASED NORVASC TO BID, AND PRN HYDRALAZINE AVAIL FOR HYPERTENTION. PT ABLE TO MAKE NEEDS KNOWN. IS NOT CALLING APPROPRIATELY WHEN GETTING OOB. NONSKID SOCKS ON. CALL LIGHT WITHIN REACH AND PT RE-EDUCATED ON USE.
[2024-10-17 00:10] VITALS: BP 136/76
--- NOTE | 2024-10-17 03:56 | NUR ---
POST VOID BLADDER SCAN 55MLS
[2024-10-17 04:49] VITALS: BP 134/74
[2024-10-17 05:19] LABS: Hematocrit 29.0 % (37.0-53.0); Hemoglobin 10.0 g/dL (13.5-17.5)
[2024-10-17 06:04] LABS: Albumin, Blood 3.2 g/dL (3.4-5.0); Anion Gap 12 mmol/L (3-11); Blood Urea Nitrogen 80 mg/dL (8-24); CO2, Blood 20 mmol/L (21-32); Calcium, Blood 8.3 mg/dL (8.5-10.1); Chloride, Blood 115 mmol/L (98-108); Creatinine, Blood 5.07 mg/dL (0.60-1.20); Glucose, Blood 105 mg/dL (70-99); Magnesium, Blood 1.9 mg/dL (1.6-2.4); Phosphorus, Blood 4.3 mg/dL (2.5-4.9); Potassium, Blood 3.4 mmol/L (3.5-5.5); Sodium, Blood 144 mmol/L (136-145)
--- NOTE | 2024-10-17 06:24 | NUR ---
ROLL INSPECTOR SUMMARY--AND HOSPITALIST CONTACT PT SHOWING IMPROVING MENTATION/ALERTNESS T/O THE SHIFT. HEAVING INCONT OF BOWEL AND BLADDER T/O THE NIGHT BUT THIS MORNING WAS CALLING FOR ASSIST TO THE BATHROOM. PT VOIDING AND EMPTYING BLADDER. POST VOID BLADDER SCAN SHOWED 55MLS. URINE SAMPLE COLLECTED THIS AM AND SENT TO LAB. RETURNED POSITIVE FOR POSSIBLE UTI AND CULTURE INDICATED. CALL TO HOSPITALIST; SPOKE TO DR BALDERRAMA. NEW ORDER FOR 1GRAM ROCEFIN ONCE DAILY FIRST DOSE NOW. PT IS 1PA WITH FWW TO BATHROOM. PT WILL NOT ALWAYS CALL FOR ASSIST AND SOMETIMES ATTEMPT OOB W/O ASSIST. BED ALARM IN PLACE FOR FALL PREVENTION. EDUCATED PT ON FALL PREVENTION. SCD'S IN PLACE. CALL LIGHT ACCESSIBLE.
[2024-10-17] MEDS ORDERED: CefTRIAXone Sodium 1,000 MG in NS 100 ML IV SCH (06:37)
[2024-10-17 07:34] VITALS: BP 136/72
[2024-10-17] MEDS ORDERED: Sodium Bicarb 8.4% Inj 150 MEQ in Dextrose 5% 1,000 ML IV SCH (10:15)
[2024-10-17 11:20] VITALS: BP 115/54
[2024-10-17 15:16] VITALS: BP 115/63
[2024-10-17 19:05] VITALS: BP 144/72
--- NOTE | 2024-10-17 19:22 | NUR ---
SHIFT SUMMARY: PT A&O X3-4. OCCASIONALLY FORGETFUL. PLEASANT AND COOPERAIVE WITH CARE. 1PA c FWW AND GB. SPOOL SALVAGER CALLED THIS AM WITH A PROLONGED QTc OF .51. CALLED AND SPOKE WITH DR. BALLESTEROS REPORTING QTc. ORDERS TO OBTAIN EKG AND HOLD ANTIEMETICS. PT DENIED N/V T/O SHIFT. PT TAKEN OUT OF ISOLATION THIS SHIFT. BICARB INFUSING @75/HR. CALL LIGHT IN REACH. BED IN LOWEST POSITION.
[2024-10-18] VITALS (7 sets, daily range): BP systolic 121–147; BP diastolic 66–84
[2024-10-18 04:52] LABS: Hematocrit 27.6 % (37.0-53.0); Hemoglobin 9.2 g/dL (13.5-17.5)
[2024-10-18 05:11] LABS: Albumin, Blood 3.0 g/dL (3.4-5.0); Anion Gap 7 mmol/L (3-11); Blood Urea Nitrogen 67 mg/dL (8-24); CO2, Blood 29 mmol/L (21-32); Calcium, Blood 8.0 mg/dL (8.5-10.1); Chloride, Blood 107 mmol/L (98-108); Creatinine, Blood 4.34 mg/dL (0.60-1.20); Glucose, Blood 133 mg/dL (70-99); Magnesium, Blood 1.7 mg/dL (1.6-2.4); Phosphorus, Blood 3.0 mg/dL (2.5-4.9); Potassium, Blood 3.7 mmol/L (3.5-5.5); Sodium, Blood 139 mmol/L (136-145)
--- NOTE | 2024-10-18 06:20 | NUR ---
BANK VAULT CLERK SUMMARY NO ACUTE EVENTS. PT A/OX3-4. REMAINS ON TELE WITH NO EVENTS OVER NIGHT. FLUIDS/BICARB RUNNING CONT. FORGETFUL AT TIMES. BED ALARM IN PLACE. 1 PERSON ASSIST TO THE BATHROOM. PT ABLE TO MAKE NEEDS KNOWN. CALL LIGHT ACCESSIBLE.
[2024-10-18] MEDS ORDERED: NS 1,000 ML IV SCH (06:30)
[2024-10-18] MEDS ORDERED: Darbepoetin Alfa In Albumn Sol 40 MCG/0.4 ML SC SCH (17:00)
--- NOTE | 2024-10-18 17:14 | NUR ---
End of shift summary: Pt is alert and oriented x3 with occasional forgetfulness noted. Pt has had no c/o pain, N/V, SOB, or CP this shift. All medications administered per EMAR. Pt rested well throughout shift and assisted up to BR. All VS have been stable and no calls regarding HR/telemetry. Call light within reach and bed in lowest position. Will continue to monitor until report given to oncoming shift nurse.
[2024-10-19 03:23] VITALS: BP 152/65
--- NOTE | 2024-10-19 04:05 | NUR ---
SHIFT SUMMARY PT ADMITTED FOR ACUTE LIKNEY INJURY. PT IS ALERT AND ORIENTED TIMES 4. PT HAS TELE READING SINUS BB 78. PT IS STAND BY ASSIST. PT COOPERATIVE WITH CARE, AND SLEPT ON AND OFF THROUGH THE NIGHT. TAKES MEDICATION WHOLE WITH WATER. PT IS AC/HS.
[2024-10-19 04:56] LABS: Hematocrit 27.9 % (37.0-53.0); Hemoglobin 9.4 g/dL (13.5-17.5)
[2024-10-19 05:36] LABS: Albumin, Blood 3.1 g/dL (3.4-5.0); Anion Gap 8 mmol/L (3-11); Blood Urea Nitrogen 57 mg/dL (8-24); CO2, Blood 28 mmol/L (21-32); Calcium, Blood 8.1 mg/dL (8.5-10.1); Chloride, Blood 110 mmol/L (98-108); Creatinine, Blood 3.80 mg/dL (0.60-1.20); Glucose, Blood 120 mg/dL (70-99); Magnesium, Blood 1.5 mg/dL (1.6-2.4); Phosphorus, Blood 3.2 mg/dL (2.5-4.9); Potassium, Blood 4.1 mmol/L (3.5-5.5); Sodium, Blood 142 mmol/L (136-145)
[2024-10-19 07:20] VITALS: BP 145/69
[2024-10-19] MEDS ORDERED: Mag Sulfate 1 GM/D5% 100ML 100 ML IV STA (07:40)
[2024-10-19 11:04] VITALS: BP 143/73
[2024-10-19 15:55] VITALS: BP 144/72
[2024-10-19 19:11] VITALS: BP 144/75
--- NOTE | 2024-10-19 19:44 | NUR ---
SHIFT SUMMARY: PT A&O X4. PLEASANT AND COOPERATIVE WITH CARE. NO ACUTE CHANGES THIS SHIFT. FLUIDS DISCONTINUED PT IS DRINKING WELL. SBA c FWW TO BATHROOM. DR. BALLESTEROS SPOKE WITH PT SISTER THIS SHIFT TO LISTEN TO CONCERNS ABOUT DISCHARGE. PLANS FOR CASE MANAGEMENT WITH SPEAK WITH PT TOMORROW TO DISCUSS OPTIONS FOR DISCHARGE. CALL LIGHT IN REACH. BED IN LOWEST POSITION.
[2024-10-20 00:06] VITALS: BP 154/70
--- NOTE | 2024-10-20 04:08 | NUR ---
SHIFT SUMMARY: PT AOX4 WITH CONFUSION AT TIMES BUT IS EASILY REORIENTABLE. CONTINENT AND ABLE TO AMBULATE TO THE BATHROOM SBA, WITH FWW. CALLS APPROPRIATELY AND IS ABLE TO MAKE NEEDS KNOWN. PT VERY PLEASANT. NO ACUTE OVERNIGHT EVENTS. CONCERNS FROM SISTER ABOUT HIS LIVING SITUATION, APPARENTLY NO RUNNING WATER AND A LOT OF GARBAGE/ NOT SUITBALE. PT CLAIMS HE DOESN'T NEED ANY HELP AND REFUSES TO LET PEOPLE COME TO THE DWELLING. PT'S SISTER REQ TO SPEAK WITH CASE MANAGEMENT BEFORE DISCHARGE. NOTE PASSED TO CM FROM DAY SHIFT NURSE. PT IN BED RESTING, BED IN LOWEST POSITION, CALL LIGHT IN REACH. CONTINUING CARE.
[2024-10-20 04:15] VITALS: BP 147/80
[2024-10-20 07:05] VITALS: BP 139/72
[2024-10-20 10:46] LABS: Hematocrit 28.3 % (37.0-53.0); Hemoglobin 9.4 g/dL (13.5-17.5)
[2024-10-20 11:07] LABS: Albumin, Blood 3.0 g/dL (3.4-5.0); Anion Gap 5 mmol/L (3-11); Blood Urea Nitrogen 56 mg/dL (8-24); CO2, Blood 28 mmol/L (21-32); Calcium, Blood 8.3 mg/dL (8.5-10.1); Chloride, Blood 110 mmol/L (98-108); Creatinine, Blood 3.47 mg/dL (0.60-1.20); Glucose, Blood 160 mg/dL (70-99); Magnesium, Blood 1.6 mg/dL (1.6-2.4); Phosphorus, Blood 2.8 mg/dL (2.5-4.9); Potassium, Blood 4.2 mmol/L (3.5-5.5); Sodium, Blood 139 mmol/L (136-145)
[2024-10-20 11:17] VITALS: BP 151/67
[2024-10-20] MEDS ORDERED: PANT20 PO (13:57)
[2024-10-20] MEDS ORDERED: ONDA4 PO (13:58)
[2024-10-20 15:13] VITALS: BP 138/70
--- NOTE | 2024-10-20 16:09 | NUR ---
PT WAS DISCHARGED UNDER MD ORDERS. ALL PIVS REMOVED AND D/C PACKET IN HAND OF PT. PT HAD NO QUESTIONS OR CONCERNS.
== END 2024-10-20 15:25 | disposition home health service (06) | DRG 683 ==
LOC: ER 13:29 → MEDS 17:29
PROVIDERS: Emergency Medicine; Internal Medicine Nephrology; Nurse Practitioner Acute Care; Physician Assistant; Student in an Organized Health Care Education/Training Program; ADMIT Family Medicine
DX: N17.9 Acute kidney failure, unspecified (principal); E87.20 Acidosis, unspecified; I12.9 Hypertensive chronic kidney disease with stage 1 through stage 4 chronic kidney disease, or unspecified chronic kidney disease; I45.10 Unspecified right bundle-branch block; E11.22 Type 2 diabetes mellitus with diabetic chronic kidney disease; N18.30 Chronic kidney disease, stage 3 unspecified; E78.5 Hyperlipidemia, unspecified; N40.0 Benign prostatic hyperplasia without lower urinary tract symptoms; E87.6 Hypokalemia; R42 Dizziness and giddiness; D63.1 Anemia in chronic kidney disease; Z86.73 Personal history of transient ischemic attack (TIA), and cerebral infarction without residual deficits; Z79.02 Long term (current) use of antithrombotics/antiplatelets; Z79.82 Long term (current) use of aspirin; Z79.899 Other long term (current) drug therapy; Z79.4 Long term (current) use of insulin
CPT/HCPCS: 36415; 71045; 76770; 80048; 80053; 80069; 81001; 82550; 82803; 82947; 83036; 83690; 83735; 85014; 85018; 85025; 85027; 87086; 93005; 93010; 97110; 97162; 97530; 99285-25; A9270; J0881; J1644; J2405; J2765; J3475; J7030; J7070; J7120